=== PATIENT | female | born 1975 | race Two or more races ===

== ENCOUNTER 2017-05-17 14:24 | Emergency (ER) | END 2017-05-17 17:10 | disposition home or self-care (01) ==

== ENCOUNTER 2018-09-18 21:12 | Emergency (ER) | payer MEDICAID, OTHER ==
[~2018-09-18] VITALS: Ht 152.4 cm; Wt 108.7 kg
[~2018-09-18 21:12] MED LIST: CEPH-443 PO; DID NOT BRING LIST; NITR-58 PO; NPH10OT RIGHT EAR; PHEN-717 PO; motrin
[2018-09-18 21:13] VITALS: Ht 152.4 cm; Wt 108.7 kg
--- NOTE | 2018-09-19 00:31 | ERD ---
ER Documentation Chief Complaint Chief Complaint RT HIP/KNEE AND FOOT PAIN [id number] HPI This is a 43-year-old female presents emergency department with complaints of leg pain and tenderness. LMP: 04/20/2018. A0. Denies headache, head injury, loss of consciousness, dizziness, neck pain, neck stiffness, throat pain, difficulty swallowing, difficulty breathing lying flat, shoulder pain, chest pain, back pain, abdominal pain, nausea, vomiting, constipation, diarrhea, urinary symptoms, or possibility being , loss of bowel and bladder control, trauma, injury, falls, difficulty walking due to pain, numbness or tingling sensation, calf pain, recent travel, recent major surgery in the last 3 weeks, calf pain, recent long travel, recent exposure to any illness, recent antibiotic use in the last 3 months, fever, chills, seizures. Past medical history: Diabetes. Hypertension. Surgical history: Social: Denies smoking, use of alcoholic beverages, use of illegal drugs. ROS All systems reviewed and are negative except as per history of present illness. Medications Home Meds Active Scripts Naproxen* (Naprosyn*) 500 Mg Tablet, 500 MG PO BID PRN for PAIN AND/OR INFLAMMATION, #30 TAB Prov:TOMEKA BUNN 09/19/18 Nitrofurantoin Monohyd Macrocr* (Macrobid*) 100 Mg Capsr, 100 MG PO HS for 7 Days, CAP Prov:ZURDO FREDERICK PA-C 05/17/17 Neomycin/Polymyxin/Hydrocort* (Cortisporin* Otic) 10 Ml Susp, 4 DROP RIGHT EAR QID for 7 Days, EA Prov:ZURDO FREDERICK PA-C 05/17/17 Phenazopyridine Hcl* (Phenazopyridine Hcl*) 200 Mg Tablet, 200 MG PO TID, #6 TAB Prov:ORLANDO PEÑA MD 05/12/15 Cephalexin* (Keflex*) 500 Mg Capsule, 500 MG PO Q6, #5 CAP Prov:ORLANDO PEÑA MD 05/12/15 Reported Medications [Did Not Bring List] No Conflict Check 06/08/11 [motrin] No Conflict Check 06/25/10 Allergies Allergies: Coded Allergies: No Known Allergies (Verified Allergy, Mild, 05/16/14) PMhx/Soc History of Surgery: No Anesthesia Reaction: No Hx Neurological Disorder: No Hx Respiratory Disorders: No Hx Cardiac Disorders: No Hx Psychiatric Problems: No Hx Miscellaneous Medical Probl: No Hx Alcohol Use: No Hx Substance Use: No Hx Tobacco Use: No Smoking Status: Never smoker Physical Exam Vitals Physical Exam Const: No acute distress Head: Atraumatic Eyes: Normal Conjunctiva ENT: Normal External Ears, Nose and Mouth. Neck: Full range of motion. No meningismus. Resp: Clear to auscultation bilaterally Cardio: Regular rate and rhythm, no murmurs Abd: Soft, non tender, non distended. Normal bowel sounds Skin: No petechiae or rashes Back: No midline or flank tenderness Ext: No cyanosis, or edema. Bilateral calf has tenderness to palpation. Bilateral pedal pulses are within normal limits. Capillary refills to lateral lower extremity are less than 2 seconds. No neurovascular deficits. Ambulatory with steady gait. Neur: Awake and alert. No neurological deficits. Psych: Normal Mood and Affect Results 24 hrs Laboratory Tests Test 09/19/18 00:52 POC Beta HCG, Qualitative NEGATIVE Current Medications Medications Dose Sig/Leeroy Start Time Status Last (Trade) Ordered Route PRN Stop Time Admin Dose Reason Admin Ketorolac 30 mg ONCE STAT 09/19/18 DC 09/19/18 Tromethamine IM 00:37 00:58 (Toradol) 09/19/18 00:39 1 tab ONCE ONCE 09/19/18 DC 09/19/18 Acetaminophen PO 01:00 00:57 / 09/19/18 01:01 Hydrocodone Bitart ([place] (5/325)) Procedures/MDM Diagnostic tests: POC urine : Negative. Ultrasound of bilateral lower extremity: No evidence of deep venous thrombosis within bilateral lower extremities. Treatment: Toradol. [place]. Re-evaluation: Denies pain. No neurovascular deficits. Ambulatory with steady gait. Differential diagnosis I have low suspicion for L-spine fracture, DVT, fractures, compartment syndrome. Final diagnosis: Leg pain. Prescription: Motrin. Flexeril. Follow-up with PCP in the next 24-48 hours. Come back here in the emergency department for any new symptoms or any worsening symptoms. All questions and concerns were answered. Patient and family members verbalized understanding and agreed with plan of care. Hemodynamically stable on discharge. Departure Diagnosis: Primary Impression: Leg pain Condition: Stable Additional Instructions: Follow-up with PCP in the next 24-48 hours. Come back here in the emergency department for any new symptoms or any worsening symptoms. TOMEKA BUNN September 19, 2018 00:31
[2018-09-19] MEDS ORDERED: KETOROLAC 30 MG INJ IM STA (00:37)
[2018-09-19] MEDS ORDERED: HYDROCODONE/APAP (5/325) TAB PO ONE (01:00)
[2018-09-19] MEDS ORDERED: NAPR-985 PO (02:27)
[2018-09-19 02:46] VITALS: BP 143/76; PULSE 78; RESP 16
== END 2018-09-19 02:46 | disposition home or self-care (01) ==
LOC: FTE 21:12
DX: M79.604 Pain in right leg (principal); E11.9 Type 2 diabetes mellitus without complications; I10 Essential (primary) hypertension
CPT/HCPCS: 81025; 93970; 96372; J1885; Z7502; Z7610

== ENCOUNTER 2019-01-15 19:31 | Emergency (ER) | payer OTHER ==
[~2019-01-15] VITALS: Ht 152.4 cm; Wt 107.2 kg
[~2019-01-15 19:31] MED LIST changes: +ASPI-699 PO; +BENA40TA56 PO; +BENZ-6 PO; +GABA300C16 PO; +GLIM4TAB3 PO; +IBUP-1542 PO; +METF100010 PO; +NAPR-985 PO; +OMEG1CAP90 PO; +OMEP20CA17 PO; +PIOG15TA67 PO; +SERT100T PO; +SIMV40TA2 PO
[2019-01-15 19:35] VITALS: Ht 152.4 cm; Wt 107.2 kg
[2019-01-15] MEDS ORDERED: KETOROLAC 30 MG INJ IV STA (20:41)
[2019-01-15 22:17] VITALS: BP 115/67; PULSE 90; RESP 20
== END 2019-01-15 22:21 | disposition home or self-care (01) ==
LOC: E/R 19:31
DX: R05 Cough (principal); R10.13 Epigastric pain; E11.9 Type 2 diabetes mellitus without complications; I10 Essential (primary) hypertension; Z79.84 Long term (current) use of oral hypoglycemic drugs; Z79.82 Long term (current) use of aspirin
CPT/HCPCS: 36415; 71045; 80053; 81001; 83690; 85025; 96374; J1885; Z7502